=== PATIENT | male | born 1930 | race Asian ===

== ENCOUNTER 2016-04-05 12:48 | Inpatient (IN) | payer OTHER ==
[~2016-04-05] VITALS: Ht 165.1 cm; Wt 79.4 kg
[2016-04-05] VITALS (12 sets, daily range): BP systolic 119–151; BP diastolic 58–78
[2016-04-05] MEDS ORDERED: ASPI81TA2 PO (12:59)
[2016-04-05] MEDS ORDERED: METOPROLOL 25MG PO (12:59)
[2016-04-05] MEDS ORDERED: ATOR10TA PO (12:59)
[2016-04-05] MEDS ORDERED: MULT-1119 PO (12:59)
[2016-04-05] MEDS ORDERED: CYAN500T4 PO (12:59)
[2016-04-05] MEDS ORDERED: CALC600T12 PO (12:59)
[2016-04-05] MEDS ORDERED: DOXA4TAB3 PO (12:59)
[2016-04-05] MEDS ORDERED: CHOL10002 PO (12:59)
[2016-04-05] MEDS ORDERED: TDAP [DIPH/PERTUSSIS/TET] 0.5 ML VIAL IM ONE ×2 (13:00→13:02)
[2016-04-05] MEDS ORDERED: IV NS 0.9% 500 ML BAG IV ONE (13:00)
[2016-04-05] MEDS ORDERED: IV SET PRIMARY 1 EA INFUS.SET MC ONE (13:02)
[2016-04-05] MEDS ORDERED: IV NS 0.9% 500 ML IV ONE (13:02)
[2016-04-05 13:12] LABS: BASOPHILS % (AUTO) 0.5 % (0.0-2.0); DIFF TOTAL % 100 %; EOSINOPHILS # (AUTO) 0.3 /CMM (0.0-0.7); EOSINOPHILS % (AUTO) 6.4 % (0.0-6.0); HEMATOCRIT 36 % (39-51); HEMOGLOBIN 12.5 g/dL (13.5-17.5); LYMPHOCYTES # (AUTO) 2.1 /CMM (0.8-4.8); LYMPHOCYTES % (AUTO) 46.5 % (20.0-44.0); MEAN CORPUSCULAR HEMOGLOBIN 35 PG (26.0-33.0); MEAN CORPUSCULAR HGB CONC 34 g/dl (31.0-36.0); MEAN CORPUSCULAR VOLUME 102 fL (80-96); MONOCYTES # (AUTO) 0.4 /CMM (0.1-1.30); MONOCYTES % (AUTO) 7.9 % (2.0-12.0); NEUTROPHILS # (AUTO) 1.8 /CMM (1.8-8.9); NEUTROPHILS % (AUTO) 38.7 % (43.0-81.0); PLATELET COUNT (AUTO) 146 /CMM (150-450); RED BLOOD CELL COUNT(AUTO) 3.55 MIL/uL (4.5-6.0); WHITE BLOOD COUNT (AUTO) 4.6 K/uL (4.3-11.0)
[2016-04-05 13:22] LABS: ANION GAP 13 (5-14); CALCIUM, SERUM 8.9 mg/dL (8.5-10.1); CARBON DIOXIDE 28 mmol/L (21-32); CHLORIDE 104 mmol/L (98-107); CREATININE 1.1 mg/dL (0.6-1.3); GLUCOSE 124 mg/dL (74-106); SODIUM SERUM 141 mmol/L (136-145); UREA NITROGEN, BLOOD 15 mg/dL (7-18)
[2016-04-05 13:28] LABS: ALANINE AMINOTRANSFERASE 26 U/L (12-78); ALBUMIN 3.7 g/dL (3.4-5.0); ASPARTATE AMINOTRANSFERASE 22 U/L (15-37); BILIRUBIN,DIRECT 0.2 mg/dL (0.0-0.2); INDIRECT BILIRUBIN 0.8 mg/dL (0.0-1.1); TOTAL PROTEIN, SERUM 7.6 g/dL (6.4-8.2)
[2016-04-05 13:29] LABS: TROPONIN I < 0.017 ng/mL (0.00-0.056)
[2016-04-05 13:37] LABS: INR 1.05 (0.87-1.13); PROTHROMBIN TIME 11.3 SECS (9.5-12.7)
[2016-04-05] MEDS ORDERED: LEVETIRACETAM (500MG) 500 MG in IV NS 0.9% 100 ML IV ONE (14:00)
[2016-04-05] MEDS ORDERED: IV SET PRIMARY PUMP SET 1 EA INFUS.SET MC ONE ×2 (14:03→15:23)
[2016-04-05] MEDS ORDERED: Z GUARD REMEDY 2 OZ OINT TP PRN (14:30)
[2016-04-05] MEDS ORDERED: MAGNESIUM HYDROXIDE 30 ML UDC PO PRN (14:30)
[2016-04-05] MEDS ORDERED: ACETAMINOPHEN 325 MG TABLET PO PRN (14:30)
[2016-04-05] MEDS ORDERED: MAG HYDROX/AL HYDROX/SIMETH 30 ML UDC PO PRN (14:30)
[2016-04-05] MEDS ORDERED: ZOLPIDEM TARTRATE 5 MG TABLET PO PRN (14:30)
[2016-04-05 15:02] LABS: KETONES,URINE NEGATIVE (NEGATIVE); LEUKOCYTE ESTERASE ,URINE NEGATIVE (NEGATIVE)
[2016-04-05 15:03] LABS: ADD UA MICROSCOPIC YES
[2016-04-05 15:09] LABS: ADD URINE CULTURE NO; WBC,URINE 0-2 /HPF (0-3)
[2016-04-05] MEDS: IV NS 0.9% 1,000 ML IV PRN (15:29)
[2016-04-05] MEDS: HYDROCODONE/APAP 5/325MG 1 EACH TABLET PO PRN (17:46)
[2016-04-05] MEDS: ONDANSETRON HCL/PF 4 MG/2 ML VIAL IVP PRN (20:03)
[2016-04-06] VITALS (30 sets, daily range): BP systolic 109–140; BP diastolic 52–81
[2016-04-06] MEDS: HYDROCODONE/APAP 5/325MG 1 EACH TABLET PO PRN ×2 (02:25→09:00)
[2016-04-06] MEDS: IV NS 0.9% 1,000 ML IV PRN ×2 (04:09→21:29)
[2016-04-06 06:00] LABS: DIFF TOTAL % 100 %; EOSINOPHILS % (AUTO) 0.1 % (0.0-6.0); HEMATOCRIT 32 % (39-51); HEMOGLOBIN 11.2 g/dL (13.5-17.5); LYMPHOCYTES # (AUTO) 0.8 /CMM (0.8-4.8); LYMPHOCYTES % (AUTO) 13.5 % (20.0-44.0); MEAN CORPUSCULAR HEMOGLOBIN 36 PG (26.0-33.0); MEAN CORPUSCULAR HGB CONC 35 g/dl (31.0-36.0); MEAN CORPUSCULAR VOLUME 101 fL (80-96); MONOCYTES # (AUTO) 0.3 /CMM (0.1-1.30); MONOCYTES % (AUTO) 5.7 % (2.0-12.0); NEUTROPHILS # (AUTO) 4.5 /CMM (1.8-8.9); NEUTROPHILS % (AUTO) 80.7 % (43.0-81.0); RED BLOOD CELL COUNT(AUTO) 3.13 MIL/uL (4.5-6.0); WHITE BLOOD COUNT (AUTO) 5.6 K/uL (4.3-11.0)
[2016-04-06 06:04] LABS: CALCIUM, SERUM 8.5 mg/dL (8.5-10.1); PHOSPHORUS 2.8 mg/dL (2.5-4.9)
[2016-04-06 06:12] LABS: THYROID STIMULATING HORMONE 0.246 uIU/mL (0.358-3.74)
[2016-04-06 06:19] LABS: PLATELET COUNT (AUTO) 100 /CMM (150-450)
[2016-04-06] MEDS ORDERED: IV SET PRIMARY PUMP SET 1 EA INFUS.SET MC ONE (07:46)
[2016-04-06] MEDS: ATORVASTATIN 10 MG TABLET PO SCH (08:15)
[2016-04-06] MEDS: PANTOPRAZOLE 40 MG TABLET.DR PO SCH (08:15)
[2016-04-06] MEDS: DOXAZOSIN MESYLATE (4 MG) 4 MG TABLET PO SCH (08:16)
[2016-04-06] MEDS: METOPROLOL TARTRATE 25 MG TABLET PO SCH ×2 (10:39→20:22)
[2016-04-06] MEDS: DEXAMETHASONE SOD PHOSPHATE 4 MG/ML VIAL IV SCH ×2 (12:21→20:21)
[2016-04-06] MEDS: LEVETIRACETAM (250 MG) 250 MG TABLET PO SCH ×2 (12:21→20:22)
[2016-04-06] MEDS: ONDANSETRON HCL/PF 4 MG/2 ML VIAL IVP PRN (13:04)
[2016-04-07] VITALS (34 sets, daily range): BP systolic 101–147; BP diastolic 45–111
[2016-04-07] MEDS: DEXAMETHASONE SOD PHOSPHATE 4 MG/ML VIAL IV SCH ×3 (04:39→20:04)
[2016-04-07 05:04] LABS: BASOPHILS % (AUTO) 0.2 % (0.0-2.0); DIFF TOTAL % 100 %; EOSINOPHILS % (AUTO) 0.1 % (0.0-6.0); HEMATOCRIT 34 % (39-51); HEMOGLOBIN 11.9 g/dL (13.5-17.5); LYMPHOCYTES # (AUTO) 0.8 /CMM (0.8-4.8); LYMPHOCYTES % (AUTO) 12.7 % (20.0-44.0); MEAN CORPUSCULAR HEMOGLOBIN 36 PG (26.0-33.0); MEAN CORPUSCULAR HGB CONC 35 g/dl (31.0-36.0); MEAN CORPUSCULAR VOLUME 102 fL (80-96); MONOCYTES # (AUTO) 0.2 /CMM (0.1-1.30); PLATELET COUNT (AUTO) 106 /CMM (150-450); RED BLOOD CELL COUNT(AUTO) 3.36 MIL/uL (4.5-6.0); WHITE BLOOD COUNT (AUTO) 5.9 K/uL (4.3-11.0)
[2016-04-07 05:25] LABS: CALCIUM, SERUM 8.2 mg/dL (8.5-10.1); CREATININE 0.9 mg/dL (0.6-1.3); POTASSIUM 4.3 mmol/L (3.5-5.1)
[2016-04-07] MEDS: PANTOPRAZOLE 40 MG TABLET.DR PO SCH (08:10)
[2016-04-07] MEDS: LEVETIRACETAM (250 MG) 250 MG TABLET PO SCH ×2 (08:10→20:03)
[2016-04-07] MEDS: ATORVASTATIN 10 MG TABLET PO SCH (08:10)
[2016-04-07] MEDS: DOXAZOSIN MESYLATE (4 MG) 4 MG TABLET PO SCH (08:11)
[2016-04-07] MEDS: METOPROLOL TARTRATE 25 MG TABLET PO SCH ×2 (08:12→20:04)
[2016-04-07] MEDS: IV NS 0.9% 1,000 ML IV PRN (12:57)
[2016-04-08] VITALS (9 sets, daily range): BP systolic 117–159; BP diastolic 56–88
[2016-04-08] MEDS: IV NS 0.9% 1,000 ML IV PRN (01:19)
[2016-04-08] MEDS: HYDROCODONE/APAP 5/325MG 1 EACH TABLET PO PRN (01:19)
[2016-04-08 04:51] LABS: BASOPHILS % (AUTO) 0.2 % (0.0-2.0); DIFF TOTAL % 100 %; HEMATOCRIT 36 % (39-51); HEMOGLOBIN 12.2 g/dL (13.5-17.5); LYMPHOCYTES # (AUTO) 0.8 /CMM (0.8-4.8); LYMPHOCYTES % (AUTO) 11.6 % (20.0-44.0); MEAN CORPUSCULAR HEMOGLOBIN 35 PG (26.0-33.0); MEAN CORPUSCULAR HGB CONC 34 g/dl (31.0-36.0); MEAN CORPUSCULAR VOLUME 103 fL (80-96); MONOCYTES # (AUTO) 0.3 /CMM (0.1-1.30); MONOCYTES % (AUTO) 4.5 % (2.0-12.0); NEUTROPHILS # (AUTO) 5.9 /CMM (1.8-8.9); NEUTROPHILS % (AUTO) 83.7 % (43.0-81.0); PLATELET COUNT (AUTO) 118 /CMM (150-450); RED BLOOD CELL COUNT(AUTO) 3.48 MIL/uL (4.5-6.0); WHITE BLOOD COUNT (AUTO) 7.1 K/uL (4.3-11.0)
[2016-04-08 05:06] LABS: CALCIUM, SERUM 8.1 mg/dL (8.5-10.1); CREATININE 0.9 mg/dL (0.6-1.3); PHOSPHORUS 2.4 mg/dL (2.5-4.9)
[2016-04-08] MEDS: PANTOPRAZOLE 40 MG TABLET.DR PO SCH (07:55)
[2016-04-08] MEDS: DOXAZOSIN MESYLATE (4 MG) 4 MG TABLET PO SCH (07:57)
[2016-04-08] MEDS: LEVETIRACETAM (250 MG) 250 MG TABLET PO SCH (07:57)
[2016-04-08] MEDS: METOPROLOL TARTRATE 25 MG TABLET PO SCH (07:57)
[2016-04-08] MEDS: ATORVASTATIN 10 MG TABLET PO SCH (07:57)
[2016-04-08] MEDS ORDERED: METO25TA20 PO (10:54)
[2016-04-08] MEDS ORDERED: PANT40TA2 PO (10:54)
[2016-04-08] MEDS ORDERED: LEVE250T2 PO (10:54)
== END 2016-04-08 15:10 | disposition home or self-care (01) | DRG 85 ==
LOC: ER 12:51 → ICU 15:00 → TELE-TD 04-08 06:30
PROVIDERS: ADMIT Internal Medicine; ATTEND Internal Medicine
DX: S06.5X0A Traumatic subdural hemorrhage without loss of consciousness, initial encounter (principal); G93.6 Cerebral edema; I47.1 Supraventricular tachycardia; W19.XXXA Unspecified fall, initial encounter; Y92.009 Unspecified place in unspecified non-institutional (private) residence as the place of occurrence of the external cause; S06.6X0A Traumatic subarachnoid hemorrhage without loss of consciousness, initial encounter; N40.0 Benign prostatic hyperplasia without lower urinary tract symptoms; E78.5 Hyperlipidemia, unspecified; K21.9 Gastro-esophageal reflux disease without esophagitis; E04.2 Nontoxic multinodular goiter; I48.0 Paroxysmal atrial fibrillation; Z82.49 Family history of ischemic heart disease and other diseases of the circulatory system; M48.02 Spinal stenosis, cervical region; R55 Syncope and collapse; S00.01XA Abrasion of scalp, initial encounter; X58.XXXA Exposure to other specified factors, initial encounter; Y93.9 Activity, unspecified; Y99.9 Unspecified external cause status; I10 Essential (primary) hypertension
CPT/HCPCS: 36415; 70450-TC; 71010-TC; 72125-TC; 76536-TC; 80048-TC; 80061-TC; 80076-TC; 81000-TC; 82962-TC; 83735-TC; 84100-TC; 84436-TC; 84443-TC; 84484-TC; 85025-TC; 85730-TC; 86850-TC; 86901; 87081-TC; 90715; 93307-TC; 93880-TC; 97001-TC; 97116-TC; 97530-TC; A4606; A6402; J1100; J1953; J2405; J7030; J7040; Z7610

== ENCOUNTER 2019-02-02 12:15 | Inpatient (IN) | payer OTHER ==
[~2019-02-02] VITALS: Ht 167.6 cm; Wt 74.4 kg
[~2019-02-02 12:15] MED LIST: ATOR10TA PO; CALC600T12 PO; CHOL10002 PO; CYAN500T65 PO; DOXA4TAB3 PO; LEVE250T2 PO; METO25TA20 PO; MULT-1119 PO; PANT40TA2 PO
--- NOTE | 2019-02-02 12:20 | NUR ---
"[id number] FRM HOME, POSSIBLE NEAR SYNCOPE. PER REPORT HYPOTENSIVE UPON EMS ARRIVAL. BG 137" pt aaox4, -sob, nad noted, vss, pending md handy
[2019-02-02] MEDS ORDERED: IV NS 0.9% 1,000 ML BAG IV ONE (12:30)
[2019-02-02] MEDS ORDERED: ONDANSETRON HCL/PF 4 MG/2 ML VIAL IVP ONE (12:30)
[2019-02-02 12:42] LABS: BASOPHILS # (AUTO) 0.1 /CMM (0.0-0.2); BASOPHILS % (AUTO) 1.9 % (0.0-2.0); EOSINOPHILS % (AUTO) 2.1 % (0.0-6.0); HEMATOCRIT 40 % (39-51); HEMOGLOBIN 13.7 g/dL (13.5-17.5); LYMPHOCYTES # (AUTO) 2.8 /CMM (0.8-4.8); LYMPHOCYTES % (AUTO) 53.9 % (20.0-44.0); MEAN CORPUSCULAR HGB CONC 34 g/dl (31.0-36.0); MEAN CORPUSCULAR VOLUME 106 fL (80-96); MONOCYTES # (AUTO) 0.3 /CMM (0.1-1.30); MONOCYTES % (AUTO) 5.6 % (2.0-12.0); NEUTROPHILS # (AUTO) 1.9 /CMM (1.8-8.9); NEUTROPHILS % (AUTO) 36.5 % (43.0-81.0); PLATELET COUNT (AUTO) 134 /CMM (150-450); RED BLOOD CELL COUNT(AUTO) 3.78 MIL/uL (4.5-6.0); WHITE BLOOD COUNT (AUTO) 5.2 K/uL (4.3-11.0)
[2019-02-02] MEDS ORDERED: ONDANSETRON HCL/PF 4 MG/2 ML VIAL ONE (12:42)
[2019-02-02 12:51] LABS: CALCIUM, SERUM 9.1 mg/dL (8.5-10.1); CARBON DIOXIDE 29 mmol/L (21-32); CHLORIDE 106 mmol/L (98-107); CREATININE 1.3 mg/dL (0.6-1.3); GLUCOSE 149 mg/dL (74-106); POTASSIUM 4.4 mmol/L (3.5-5.1); SODIUM SERUM 141 mmol/L (136-145); UREA NITROGEN, BLOOD 15 mg/dL (7-18)
[2019-02-02 12:57] LABS: ALANINE AMINOTRANSFERASE 33 U/L (12-78); ALBUMIN 3.8 g/dL (3.4-5.0); ALKALINE PHOSPHATASE 58 U/L (46-116); ASPARTATE AMINOTRANSFERASE 31 U/L (15-37); BILIRUBIN,DIRECT 0.2 mg/dL (0.0-0.2); BILIRUBIN,TOTAL 1.1 mg/dL (0.2-1.0); TOTAL PROTEIN, SERUM 7.7 g/dL (6.4-8.2)
[2019-02-02] MEDS ORDERED: POTA-10 PO (13:27)
[2019-02-02] MEDS ORDERED: ASPI-605 PO (13:27)
[2019-02-02] MEDS ORDERED: ASCO500T10 PO (13:27)
[2019-02-02] MEDS ORDERED: DIGO125T PO (13:27)
[2019-02-02] MEDS ORDERED: CYAN-51 PO (13:27)
[2019-02-02] MEDS ORDERED: CHOL10002 PO (13:27)
[2019-02-02] MEDS ORDERED: FLUD0.1T3 PO (13:27)
[2019-02-02] MEDS ORDERED: IV NS 0.9% 1,000 ML IV PRN (13:41)
[2019-02-02] MEDS ORDERED: TEMAZEPAM 15 MG CAPSULE PO PRN (14:00)
[2019-02-02] MEDS ORDERED: ACETAMINOPHEN 325 MG TABLET PO PRN (14:00)
[2019-02-02] MEDS ORDERED: MAGNESIUM HYDROXIDE 30 ML UDC PO PRN (14:00)
[2019-02-02] MEDS ORDERED: ONDANSETRON HCL/PF 4 MG/2 ML VIAL IVP PRN (14:00)
[2019-02-02] MEDS ORDERED: HYDROCODONE/APAP 5/325MG 1 EACH TABLET PO PRN (14:00)
[2019-02-02] MEDS ORDERED: MAG HYDROX/AL HYDROX/SIMETH 30 ML UDC PO PRN (14:00)
--- NOTE | 2019-02-02 14:26 | NUR ---
SPOKE TO DIOR CONSTRUCTION COORDINATOR SALLY (DIRECT # [phone]), PER SALLY, AWAITING FOR BED FROM [place]. INFORMED HER THAT WE WILL FOLLOW UP AND CALL HER IN AN HOUR FOR UPDATAS.
--- NOTE | 2019-02-02 14:31 | NUR ---
IF NO TRANSFER INFO BY 3:30-4PM, PT WILL BE ADMITTED TO [facility] D/T 2HR LIMIT FROM FIRST CONTACT OF APPLICATIONS PROCESSOR
--- NOTE | 2019-02-02 15:16 | NUR ---
VERBAL AUTH TO ADMIT FROM SALLY SALES MGR
[2019-02-02 16:00] VITALS: BP 134/98
--- NOTE | 2019-02-02 16:00 | NUR ---
OPERATING SYSTEMS PROGRAMMER NOTES PATIENT ARRIVED FROM ER VIA GURNEY. PATIENT ALERT, ORIENTED X3 WITH AT BEDSIDE. PERIPHERAL IV INTACT PATENT. PATIENT ORIENTED TO ROOM. CALL LIGHT WITHIN REACH. PATIENTS SKIN IS INTACT. PATIENT IS AMBULATORY WITH ASSIST. STATES HE WAS GARDENING AND FELT WEAK. PATIENT PLACED ON TELE SR. BED IN LOW LOCKED POSITION. CALL LIGHT WITHIN REACH. WILL CONTINUE TO MONITOR.
--- NOTE | 2019-02-02 16:20 | NUR ---
report given to jamie lopez for arpita [facility]
--- NOTE | 2019-02-02 18:57 | NUR ---
CREW CLERK NOTES PATIENT IN BED FAMILY AT BEDSIDE. PATIENT AWAKE COOPERATIVE. ALL DUE MEDICATIONS ADMINISTERED. ALL NEEDS MET. PERIPHERAL IV INTACT PATENT RUNNING PRESCRIBED FLUIDS. WILL ENDORSE CARE TO PM SHIFT.
--- NOTE | 2019-02-02 19:45 | NUR ---
RN OPENING NOTES RECEIVED REPORT FROM BLANCHE RNABE. FOUND Pt AWAKE, RESTING IN BED. NO S/S OF ACUTE DISTRESS OR SOB NOTED. FAMILY VISITING AT BEDSIDE. Pt IS A/OX4, VERBAL, ABLE TO MAKE NEEDS KNOWN. IV ACCESS ON LAC #20G. IVF NS @75ML/HR, INFUSING WELL. SAFETY MEASURES IN PLACE. BED LOW, LOCKED, HOB ELEVATED, SIDE RAILS UP, CALL LIGHT AND BEDSIDE TABLE WITHIN REACH. BED ALARM ON. WILL CONTINUE TO MONITOR Pt's CONDITION AND SAFETY THROUGHOUT THE NIGHT.
[2019-02-02 20:00] VITALS: BP 119/91
[2019-02-02 20:44] VITALS: BP 119/91
[2019-02-02] MEDS ORDERED: ATORVASTATIN 10 MG TABLET PO SCH (22:00)
[2019-02-02 23:45] VITALS: BP 146/76
[2019-02-02 23:46] VITALS: BP 136/74
[2019-02-02 23:47] VITALS: BP 124/68
[2019-02-03] VITALS: BP_SYST 129; BP_SYST 136; BP_SYST 142; BP_DIAS 68; BP_DIAS 74; BP_DIAS 76
[2019-02-03 04:17] VITALS: BP 140/78
[2019-02-03 06:21] LABS: BASOPHILS % (AUTO) 0.5 % (0.0-2.0); EOSINOPHILS % (AUTO) 2.3 % (0.0-6.0); HEMATOCRIT 41 % (39-51); HEMOGLOBIN 13.9 g/dL (13.5-17.5); LYMPHOCYTES % (AUTO) 41.4 % (20.0-44.0); MEAN CORPUSCULAR HGB CONC 34 g/dl (31.0-36.0); MEAN CORPUSCULAR VOLUME 106 fL (80-96); MONOCYTES # (AUTO) 0.4 /CMM (0.1-1.30); MONOCYTES % (AUTO) 7.5 % (2.0-12.0); NEUTROPHILS # (AUTO) 2.4 /CMM (1.8-8.9); NEUTROPHILS % (AUTO) 48.3 % (43.0-81.0); PLATELET COUNT (AUTO) 127 /CMM (150-450); RED BLOOD CELL COUNT(AUTO) 3.87 MIL/uL (4.5-6.0); WHITE BLOOD COUNT (AUTO) 4.9 K/uL (4.3-11.0)
[2019-02-03 06:55] LABS: CALCIUM, SERUM 8.9 mg/dL (8.5-10.1); CREATININE 1.1 mg/dL (0.6-1.3); MAGNESIUM 1.9 mg/dL (1.8-2.4); PHOSPHORUS 3.2 mg/dL (2.5-4.9); POTASSIUM 3.9 mmol/L (3.5-5.1)
--- NOTE | 2019-02-03 07:30 | NUR ---
RN CLOSING NOTES: NO SIGNIFICANT CHANGES IN Pt's CONDITION. ALL NEEDS MET AND ATTENDED TO. Pt IS RESTING COMFORTABLY IN BED. NO S/S OF ACUTE DISTRESS OR SOB NOTED DURING THE NIGHT. SAFETY MEASURES IN PLACE. BED LOW, LOCKED, HOB ELEVATED, SIDE RAILS UP, CALL LIGHT AND BEDSIDE TABLE WITHIN REACH. BED ALARM ON. WILL ENDORSE TO DAYSHIFT RN FOR Pt's ANDREW. TELE READING SR 79.
--- NOTE | 2019-02-03 07:35 | NUR ---
RADIO PRODUCER OPENING NOTES: RECEIVED PATIENT IN BED SLEEPING COMFORTABLY. A/OX4, VERBALLY RESPONSIVE, AND ABLE TO MAKE NEEDS KNOWN. PATIENT IS STABLE AND NO SIGNS OF DISTRESS OR SOB NOTED. ON ROOM AIR, BREATHING EVEN AND UNLABORED. TELE READING OF SR WITH HR OF 70-90S. NO COMPLAINS OF PAIN OR DISCOMFORT AT THIS TIME. IV ACCESS ON LAC #20G, INTACT AND PATENT. NO SIGNS OF INFILTRATION. SKIN IS INTACT. PATIENT IS AMBULATORY WITH ASSIST AND BRP. SAFETY MEASURES ARE INITIATED. BED IS IN LOW, LOCKED POSITION WITH HOB ELEVATED, SIDE RAILS UP X2. CALL LIGHT IS WITHIN REACH, BED ALARM ON, AND WILL CONTINUE TO MONITOR PATIENT ACCORDINGLY.
[2019-02-03 08:00] VITALS: BP 134/72
[2019-02-03] MEDS ORDERED: FLUDROCORTISONE 0.1 MG TABLET PO SCH (09:00)
[2019-02-03] MEDS ORDERED: CHOLECALCIFEROL 1,000 UNIT TABLET (VIT D3) PO SCH (09:00)
[2019-02-03] MEDS ORDERED: DIGOXIN 0.125 MG TABLET PO SCH (09:00)
[2019-02-03] MEDS ORDERED: ASPIRIN EC 81 MG TABLET.DR PO SCH (09:00)
[2019-02-03] MEDS ORDERED: CYANOCOBALAMIN 500 MCG TABLET PO SCH (09:00)
[2019-02-03] MEDS ORDERED: MULTIVITAMINS,THERAGRAN 1 UDTAB TABLET PO SCH (09:00)
[2019-02-03] MEDS ORDERED: ASCORBIC ACID 500 MG TABLET PO SCH (09:00)
[2019-02-03 09:21] LABS: LYMPHOCYTES % (MANUAL) 41 % (16-48); MONOCYTES % (MANUAL) 8 % (0-11.0); NEUTROPHILS % (MANUAL) 51 (42-76)
--- NOTE | 2019-02-03 10:38 | NUR ---
ACCOUNT COLLECTOR NOTES PATIENT SEEN BY DR. CARMONA SOLAR ENERGY INSTALLATION MANAGER CLEARED FOR DISCHARGE, PATIENT TO FOLLOW UP WITH OUTPATIENT SOLAR ENERGY INSTALLATION MANAGER.
--- NOTE | 2019-02-03 12:30 | NUR ---
MS RN NOTES PATIENT DISCHARGED HOME WITH AND CAREGIVER. PATIENT ALERT, ORIENTED X4. discharge instructions provided to and patient, verbalized understanding. Discharge protocol followed. All belongings accounted for, belonging list signed. Peripheral iv removed. Id band removed. patient escorted to car by spanish instructor.
== END 2019-02-03 12:30 | disposition home or self-care (01) | DRG 74 ==
LOC: ER 12:17 → TELE 15:23
DX: G90.8 Other disorders of autonomic nervous system (principal); D69.6 Thrombocytopenia, unspecified; E78.5 Hyperlipidemia, unspecified; I10 Essential (primary) hypertension; I44.0 Atrioventricular block, first degree; Z86.73 Personal history of transient ischemic attack (TIA), and cerebral infarction without residual deficits; I48.91 Unspecified atrial fibrillation; N40.0 Benign prostatic hyperplasia without lower urinary tract symptoms; K21.9 Gastro-esophageal reflux disease without esophagitis; K64.9 Unspecified hemorrhoids
CPT/HCPCS: 36415; 70450-TC; 71045-TC; 80048-TC; 80061-TC; 80076-TC; 80162-TC; 82550-TC; 83735-TC; 84100-TC; 84484-TC; 85025-TC; 85730-TC; 87081-TC; 93307-TC; 97116-TC; 97530-TC; G0378; J2405; J7030